=== PATIENT | female | born 1995 | race Two or more races ===

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

== ENCOUNTER 2020-05-29 20:41 | Emergency (ER) | payer SELFPAY ==
[~2020-05-29] VITALS: Ht 152.4 cm; Wt 61.2 kg
--- NOTE | 2020-05-29 20:55 | NUR ---
C/O ABDOMINAL PAIN WITH VAGINAL SPOTTING. PT LMP 04/17/20. PT AAOX4, VSS. RR EVEN & UNLABORED. DENIES CP, SOB, DIZZINESS, N/V AT THIS TIME. AWAITING EVAL BY GREG/PA. WILL CONT TO MONITOR.
--- NOTE | 2020-05-29 21:10 | NUR ---
GLORY CABALLERO AT BS FOR [facility]NA[facility].
[2020-05-29] MEDS ORDERED: ACETAMINOPHEN ES 500 MG TABLET ONE (21:44)
--- NOTE | 2020-05-29 21:57 | NUR ---
MEDICATED PER ERMD ORDER, PT GRECIA WELL.
[2020-05-29] MEDS ORDERED: ACETAMINOPHEN ES 500 MG TABLET PO ONE (22:00)
[2020-05-29] MEDS ORDERED: IV NS 0.9% 1,000 ML BAG IV ONE (22:00)
[2020-05-29 22:01] LABS: BASOPHILS # (AUTO) 0.1 /CMM (0.0-0.2); BASOPHILS % (AUTO) 0.7 % (0.0-2.0); EOSINOPHILS % (AUTO) 3.3 % (0.0-6.0); HEMATOCRIT 41 % (33-45); HEMOGLOBIN 13.9 g/dL (11.5-14.8); LYMPHOCYTES # (AUTO) 2.5 /CMM (0.8-4.8); LYMPHOCYTES % (AUTO) 25.8 % (20.0-44.0); MEAN CORPUSCULAR HGB CONC 34 g/dl (31.0-36.0); MEAN CORPUSCULAR VOLUME 82 fL (82-100); MONOCYTES # (AUTO) 0.6 /CMM (0.1-1.30); MONOCYTES % (AUTO) 6.2 % (2.0-12.0); NEUTROPHILS # (AUTO) 6.1 /CMM (1.8-8.9); PLATELET COUNT (AUTO) 343 /CMM (150-450); RED BLOOD CELL COUNT(AUTO) 4.99 MIL/uL (4.0-5.2); WHITE BLOOD COUNT (AUTO) 9.6 K/uL (4.3-11.0)
[2020-05-29 22:02] LABS: BILIRUBIN,URINE NEGATIVE (NEGATIVE); BLOOD, URINE MODERATE Ery/uL (NEGATIVE); COLOR,URINE YELLOW (YELLOW); LEUKOCYTE ESTERASE ,URINE TRACE (NEGATIVE); NITRITE, URINE NEGATIVE (NEGATIVE); PROTEIN,URINE NEGATIVE (NEGATIVE); UGLUCOSE NEGATIVE (NEGATIVE); UROBILINOGEN,URINE 0.2 EU/dL (0.2)
[2020-05-29 22:15] LABS: CALCIUM, SERUM 9.5 mg/dL (8.5-10.1); CREATININE 0.7 mg/dL (0.6-1.3); POTASSIUM 3.7 mmol/L (3.5-5.1)
--- NOTE | 2020-05-29 22:21 | NUR ---
CALL FROM LAB. NOT A CANDIDATE FOR [facility].
[2020-05-29 22:24] LABS: BACTERIA,URINE 1+ /HPF (None Seen)
[2020-05-29 22:42] LABS: ALBUMIN 4.3 g/dL (3.4-5.0); BILIRUBIN,DIRECT 0.1 mg/dL (0.0-0.2); BILIRUBIN,TOTAL 0.3 mg/dL (0.2-1.0); TOTAL PROTEIN, SERUM 8.4 g/dL (6.4-8.2)
--- NOTE | 2020-05-29 23:31 | NUR ---
Patient discharged to home in stable condition. Written and verbal after care instructions given. Patient verbalizes understanding of instruction. IV removed. Catheter intact and site benign. Pressure and 4x4 applied to site. No bleeding noted.
[2020-05-29 23:32] VITALS: BP 128/87
== END 2020-05-29 23:32 | disposition home or self-care (01) ==
LOC: ER 20:51
DX: O20.8 Other hemorrhage in early pregnancy (principal); Z3A.01 Less than 8 weeks gestation of pregnancy
CPT/HCPCS: 36415; 76805; 80048; 80076; 81001; 84702; 85025; 85730; 87086; 96360; 99284; J7030

== ENCOUNTER 2024-06-16 15:39 | Emergency (ER) | payer MEDICAID, OTHER ==
[~2024-06-16] VITALS: Ht 152.4 cm; Wt 69.4 kg
[2024-06-16] MEDS ORDERED: ACETAMINOPHEN ES 500 MG TABLET ONE (16:44)
[2024-06-16 16:56] LABS: BASOPHILS # (AUTO) 0.1 K/uL (0.0-0.2); BASOPHILS % (AUTO) 0.7 % (0.0-2.0); EOSINOPHILS % (AUTO) 0.4 % (0.0-6.0); HEMATOCRIT 38 % (33-45); HEMOGLOBIN 13.3 g/dL (11.5-14.8); LYMPHOCYTES # (AUTO) 0.5 K/uL (0.8-4.8); LYMPHOCYTES % (AUTO) 5.7 % (20.0-44.0); MEAN CORPUSCULAR HEMOGLOBIN 27 PG (26.0-33.0); MEAN CORPUSCULAR HGB CONC 35 g/dl (31.0-36.0); MEAN CORPUSCULAR VOLUME 79 fL (82-100); MONOCYTES # (AUTO) 0.8 K/uL (0.1-1.30); MONOCYTES % (AUTO) 8.6 % (2.0-12.0); NEUTROPHILS # (AUTO) 7.8 K/uL (1.8-8.9); NEUTROPHILS % (AUTO) 84.6 % (43.0-81.0); PLATELET COUNT (AUTO) 261 K/uL (150-450); RED BLOOD CELL COUNT(AUTO) 4.88 MIL/uL (4.0-5.2); RED CELL DISTRIBUTION WIDTH 13.7 % (11.5-15.0); WHITE BLOOD COUNT (AUTO) 9.3 K/uL (4.3-11.0)
[2024-06-16] MEDS: ACETAMINOPHEN ES 500 MG TABLET PO ONE (17:03)
[2024-06-16] MEDS: IV NS 0.9% 1,000 ML BAG IV ONE (17:03)
[2024-06-16 17:21] LABS: CREATININE 0.7 mg/dL (0.6-1.3); POTASSIUM 3.4 mmol/L (3.5-5.1)
[2024-06-16 17:21] LABS: APPEARANCE,URINE CLEAR (CLEAR); BILIRUBIN,URINE NEGATIVE (NEGATIVE); BLOOD, URINE 1+ Ery/uL (NEGATIVE); COLOR,URINE YELLOW (YELLOW); KETONES,URINE TRACE mg/dL (NEGATIVE); LEUKOCYTE ESTERASE ,URINE 1+ (NEGATIVE); NITRITE, URINE NEGATIVE (NEGATIVE); PROTEIN,URINE NEGATIVE (NEGATIVE); UGLUCOSE NEGATIVE (NEGATIVE)
[2024-06-16 17:37] LABS: BILIRUBIN,DIRECT 0.1 mg/dL (0.0-0.2); BILIRUBIN,TOTAL 0.3 mg/dL (0.2-1.0); TOTAL PROTEIN, SERUM 7.8 g/dL (6.4-8.2)
[2024-06-16] MEDS ORDERED: CEPH-570 PO (17:50)
[2024-06-16 17:57] LABS: ADD URINE CULTURE YES; BACTERIA,URINE Few /HPF (None Seen); SQUAMOUS EPITHELIAL CELL,UR Moderate /HPF (None Seen)
[2024-06-16 19:10] VITALS: BP 116/65; TEMP 98.4; O2SAT 98
== END 2024-06-16 19:39 | disposition home or self-care (01) ==
LOC: ER 15:49
DX: O23.41 Unspecified infection of urinary tract in pregnancy, first trimester (principal); N39.0 Urinary tract infection, site not specified; R51.9 Headache, unspecified; R10.84 Generalized abdominal pain; R05.9 Cough, unspecified; Z3A.10 10 weeks gestation of pregnancy; Z20.822 Contact with and (suspected) exposure to COVID-19
CPT/HCPCS: 99284; 96360; 76805; 87426; 85025; 80048; 87086; 80076; 81001; 36415; 84702; J7030

== ENCOUNTER 2024-06-23 16:57 | Emergency (ER) | payer OTHER ==
[~2024-06-23] VITALS: Ht 152.4 cm; Wt 67.6 kg
[~2024-06-23 16:57] MED LIST: CEPH-570 PO
[2024-06-23 17:31] VITALS: BP 129/70; TEMP 98.6; O2SAT 96
== END 2024-06-23 20:22 | disposition left against medical advice (07) ==
LOC: ER 17:14
DX: R51.9 Headache, unspecified (principal); R11.10 Vomiting, unspecified; J02.9 Acute pharyngitis, unspecified; Z53.21 Procedure and treatment not carried out due to patient leaving prior to being seen by health care provider